=== PATIENT | male | born 1955 | race Caucasian/White ===

== ENCOUNTER 2020-03-13 18:52 | Emergency (ER) | payer MEDICARE, SELFPAY ==
--- NOTE | ~2020-03-13 | CT_ITS ---
EXAMINATION: CT pelvis w con INDICATION: Pelvic pain and hematuria after fall TECHNIQUE: Computed tomographic images of the pelvis were obtained after the administration of 100 cc of Omnipaque 350 intravenous contrast. The dose-length product (DLP) was 168.57 mGy-cm. Automated ex posure control and iterative reconstruction technique were employed. COMPARISON: None available FINDINGS: There is no acute osseous abnormality of the pelvis. Moderate lumbar spondylosis is noted. The bladder is normal in appearance without suspicion for rupture. There are no pathologically enlarg ed pelvic lymph nodes. Calcified atherosclerosis is noted. No definite peritoneal or penile injury is noted. IMPRESSION: 1. No CT correlate for the patient's symptoms. Reviewed, dictated and finalized at location A.
[2020-03-13 19:10] VITALS: BP 146/83; PULSE 70; RESP 16; TEMP 37.2; O2SAT 99
[2020-03-13 19:24] VITALS: BP 138/87; PULSE 74; RESP 20; O2SAT 97
[2020-03-13 20:55] LABS: Estimated CRCL calculation 51 ml/min; Estimated Glomerular Filt Rate > 60
--- NOTE | 2020-03-13 21:01 | ED.FALL ---
HPI - Fall General Chief Complaint: Fall <Moiz Danielle MD - Last Filed: 03/13/20 23:14> Stated Complaint: fall, hematuria <Moiz Danielle MD - Last Filed: 03/13/20 23:14> Time Seen by Provider: 03/13/20 19:47 <Moiz Danielle MD - Last Filed: 03/13/20 23:14> Source: patient and family <Moiz Danielle MD - Last Filed: 03/13/20 23:14> Mode of arrival: ambulatory <Moiz Danielle MD - Last Filed: 03/13/20 23:14> Limitations: no limitations <Moiz Danielle MD - Last Filed: 03/13/20 23:14> History of Present Illness HPI Narrative: 64-year-old man Was doing some home improvements today and had a strip of plywood across some floor joists Stepped on the end of said plywood strip which was unsupported at the other side and fell through the joists He reports that when he fell he straddled the joists somehow, and yet somehow avoided landing directly on his perineum or scrotum, as he wound up leaning forward on the joist Subsequently he noticed bloody urine when he voided and bloody discharge from his penis <Moiz Danielle MD - Last Filed: 03/13/20 23:14> Onset (ago): hour(s) <Moiz Danielle MD - Last Filed: 03/13/20 23:14> Fall from: standing <Moiz Danielle MD - Last Filed: 03/13/20 23:14> Place fall occurred: home <Moiz Danielle MD - Last Filed: 03/13/20 23:14> Loss of consciousness: none <Moiz Danielle MD - Last Filed: 03/13/20 23:14> Location of injury: pelvis <Moiz Danielle MD - Last Filed: 03/13/20 23:14> Related Data Home Medications: Home Medications Medication Instructions Recorded Confirmed No Home Medications 03/13/20 03/13/20 <Moiz Danielle MD - Last Filed: 03/13/20 23:14> Allergies/Adverse Reactions: Allergies Allergy/AdvReac Type Severity Reaction Status Date / Time No Known Allergies Allergy Verified 03/13/20 19:23 <Moiz Danielle MD - Last Filed: 03/13/20 23:14> Review of Systems Review of Systems: All systems reviewed & are unremarkable except as noted in HPI and below <Moiz Danielle MD - Last Filed: 03/13/20 23:14> Constitutional: Constitutional: Denies chills and Denies fever(s) <Moiz Danielle MD - Last Filed: 03/13/20 23:14> Cardiovascular: Cardiovascular: Denies chest pain <Moiz Danielle MD - Last Filed: 03/13/20 23:14> Respiratory: Respiratory: Denies dyspnea <Moiz Danielle MD - Last Filed: 03/13/20 23:14> Gastrointestinal: Gastrointestinal: Denies vomiting <Moiz Danielle MD - Last Filed: 03/13/20 23:14> Genitourinary: Genitourinary: Reports hematuria and Reports penile discharge <Moiz Danielle MD - Last Filed: 03/13/20 23:14> Musculoskeletal: Musculoskeletal: Denies back pain and Denies arthralgias <Moiz Danielle MD - Last Filed: 03/13/20 23:14> Neurologic: Denies dizziness and Denies weakness <Moiz Danielle MD - Last Filed: 03/13/20 23:14> Hematologic/Lymphatic: Hematologic/Lymphatic: Denies easy bleeding and Denies easy bruising <Moiz Danielle MD - Last Filed: 03/13/20 23:14> Exam Const: General: healthy appearing and no acute distress <Moiz Danielle MD - Last Filed: 03/13/20 23:14> Orientation/consciousness: patient oriented x3 <Moiz Danielle MD - Last Filed: 03/13/20 23:14> HENMT: Head: normal to inspection <Moiz Danielle MD - Last Filed: 03/13/20 23:14> Mouth: Yes moist mucous membranes <Moiz Danielle MD - Last Filed: 03/13/20 23:14> Eyes: Conjunctivae: conjunctivae normal <Moiz Danielle MD - Last Filed: 03/13/20 23:14> EOM: EOMs intact bilaterally <Moiz Danielle MD - Last Filed: 03/13/20 23:14> Neck: Other: NT <Moiz Danielle MD - Last Filed: 03/13/20 23:14> Resp: Effort & Inspection: normal respiratory effort <Moiz Danielle MD - Last Filed: 03/13/20 23:14> GI: Other: Soft, nontender nondistended Pelvis is stable and nontender <Moiz Danielle MD - Last Filed: 03/13/20 23:14> : Scrotum: scrotum normal <Moiz Danielle MD - Last
[2020-03-13 21:06] LABS: Basophils Absolute Auto 0.1 K/mm3 (0.0-0.1); Basophils Percent Auto 0.6 % (0.2-1.2); Eosinophils Absolute Auto 0.1 K/mm3 (0-0.3); Eosinophils Percent Auto 1.3 % (0-4.4); Hematocrit 38.3 % (42.0-52.0); Hemoglobin 12.7 g/dL (14.0-18.0); Immature Granulocyte Absolute 0.03 K/mm3 (0.00-0.031); Immature Granulocyte Percent A 0.4 % (0-0.5); Lymphocytes Percent Auto 23.3 % (18.3-44.2); Mean Corpuscular HGB Conc 33.2 g/dl (32-36); Mean Corpuscular Hemoglobin 29.6 pg (26-34); Mean Corpuscular Volume 89.3 fl (80-100); Mean Platelet Volume 10.1 fl (7.4-10.4); Monocytes Absolute Auto 0.8 K/mm3 (0.1-0.6); Monocytes Percent Auto 10.6 % (2.6-8.5); Neutrophils Absolute Auto 4.9 K/mm3 (1.3-6.7); Neutrophils Percent Auto 63.8 % (45.5-73.1); Platelet Count Result 213 k/mm3 (150-375); Red Blood Count 4.29 M/mm3 (4.6-6.20); Red Cell Distribution Width 13.5 % (11.5-14.5); White Blood Count 7.7 K/mm3 (4.5-10.0)
[2020-03-13 21:17] LABS: INR 1.1; Prothrombin Time 13.6 Seconds (11.1-14.7)
[2020-03-13 21:22] LABS: Anion Gap 9.9 mmol/L (7-16); Blood Urea Nitrogen 22 mg/dL (9-20); Calcium 8.4 mg/dL (8.4-10.2); Carbon Dioxide 27 mmol/L (22-30); Chloride 103 mmol/L (98-107); Estimated CRCL calculation 55 ml/min; Estimated Glomerular Filt Rate > 60; Glucose 102 mg/dL (75-110); Potassium 3.9 mmol/L (3.4-5.0); Sodium 136 mmol/L (137-145)
[2020-03-13 21:39] VITALS: BP 124/66; PULSE 57; RESP 20; O2SAT 98
[2020-03-13 22:51] VITALS: BP 128/73; PULSE 60; RESP 20; O2SAT 96
[2020-03-13 23:07] LABS: Add Urine Microscopic? YES; Bilirubin Urine Negative (Negative); Blood Urine 3+ (Negative); Glucose Urine UA Negative (Negative); Ketones Urine Negative (Negative); Leukocyte Esterase Ur Negative LEU/UL (Negative); Nitrate Urine Negative (Negative); Protein Urine 2+ mg/dL (Negative); RBC Urine >75 /hpf (0-2); Urobilinogen Urine Negative mg/dL (<2.0)
[2020-03-13 23:08] LABS: Appearance Urine Sl Cloudy (Clear); Color Urine Straw (Yellow); Specific Grav Ur 1.056 (1.001-1.035)
[2020-03-13 23:34] VITALS: BP 128/73; PULSE 58; RESP 20; O2SAT 97
== END 2020-03-13 23:39 | disposition short-term general hospital (02) ==
PROVIDERS: Emergency Provider Emergency Medicine
DX: S37.30XA Unspecified injury of urethra, initial encounter (principal); W01.198A Fall on same level from slipping, tripping and stumbling with subsequent striking against other object, initial encounter
CPT/HCPCS: 36415; 72193; 80048; 81001; 85025; 85610; 99284; 99285; Q9967